=== PATIENT | male | born 1965 | race Caucasian/White ===

== ENCOUNTER 2020-12-07 11:23 | Emergency (ER) | payer OTHER ==
--- NOTE | 2020-12-07 13:03 | EDM.PDOC ---
ED HPI GENERAL MEDICAL PROBLEM - General Chief Complaint: Laceration Stated Complaint: CUT LEFT PALM Time Seen by Provider: 12/07/20 12:25 Source of Information: Reports: Patient History Limitations: Reports: No Limitations - History of Present Illness INITIAL COMMENTS - FREE TEXT/NARRATIVE: 55 yo male presents to ER following injury to his right hand palm. he was ripping a wall out with a tuscarora bar and it slipped cutting into his palm. He maintains full movement of his hand and fingers. HE does need an updated tetanus. generally healthy - Related Data Allergies Allergy/AdvReac Type Severity Reaction Status Date / Time aspirin Allergy Acid Reflux Verified 12/07/20 13:20 ibuprofen Allergy Acid Reflux Verified 12/07/20 13:20 Home Meds: Home Meds . [Unable to Verify Home Med List] 12/07/20 [History] ED ROS GENERAL - Review of Systems Review Of Systems: See Below Respiratory: Denies: Shortness of Breath, Wheezing Cardiovascular: Denies: Chest Pain Skin: Reports: Wound ED EXAM, SKIN/RASH Exam: See Below Exam Limited By: No Limitations General Appearance: Alert, WD/WN, No Apparent Distress Respiratory/Chest: No Respiratory Distress Skin: Warm, Dry, Intact, Wound/Incision Location, Skin: Upper Extremity, Right Characteristics: Other (laceration palm right hand 2.5 cm, bleeding controled) ED SKIN PROCEDURES - Laceration/Wound Repair Right Anterior Hand Appearance: Superficial, Subcutaneous Distal NVT: Neuro & Vascular Intact Anesthetic Type: Local Local Anesthesia - Lidocaine (Xylocaine): 1% with EPI Local Anesthetic Volume: 5cc Skin Prep: Chlorhexidine (Hibiciens), Saline, Sterile Drape Saline Irrigation (cc's): 100 Exploration/Debridement/Repair: Wound Explored, In a Bloodless Field, Explored to Base Closed with: Sutures Lac/Wound length In cm: 2 Suture Size: 4-0 # of Sutures: 5 Suture Type: Nylon, Interrupted, Simple Sterile Dressing Applied: Nurse Tetanus Status Addressed: Yes Complications: No Course - Vital Signs Last Recorded V/S: Last Vital Signs Temp 36.2 C 12/07/20 13:21 Pulse 80 12/07/20 13:21 Resp 18 12/07/20 13:21 BP 161/86 H 12/07/20 13:21 Pulse Ox 96 12/07/20 13:21 - Orders/Labs/Meds Orders: Active Orders 24 hr Category Date Time Status Vaccines to be Administered [RC] PER UNIT ROUTINE Care 12/07/20 13:05 Active Meds: Medications Discontinued Medications Generic Name Dose Route Start Last Admin Trade Name Waqar PRN Reason Stop Dose Admin Bacitracin 1 dose 12/07/20 13:06 12/07/20 13:23 Bacitracin Oint 1 Gm U/D Packet TOP 12/07/20 13:07 1 dose ONETIME ONE Administration Diphtheria/Tetanus/Acell Pertussis 0.5 ml 12/07/20 13:05 12/07/20 13:23 Diphtheria,Pertussis(Acell),Tetanus Vaccine 0.5 Ml Syringe IM 12/07/20 13:06 0.5 ml .ONCE ONE Administration Lidocaine/Epinephrine 5 ml 12/07/20 13:06 12/07/20 13:23 Lidocaine 1% With Epinephrine 1:100,000 50 Ml Mdv INFILT 12/07/20 13:07 5 ml ONETIME ONE Administration Departure - Departure Time of Disposition: 13:51 Disposition: Home, Self-Care 01 Condition: Good Clinical Impression: Laceration of hand Qualifiers: Encounter type: initial encounter Foreign body presence: without foreign body Laterality: right Qualified Code(s): S61.411A - Laceration without foreign body of right hand, initial encounter - Discharge Information *PRESCRIPTION DRUG MONITORING PROGRAM REVIEWED*: Not Applicable *COPY OF PRESCRIPTION DRUG MONITORING REPORT IN PATIENT JOANIE: Not Applicable Instructions: Sutures, Lenorah, or Adhesive Wound Closure, [id number] Referrals: PCP,None [Primary Care Provider] - Forms: ED Department Discharge Additional Instructions: sutures out in 8-10 days keep dry today, thereafter wash with arm soapy water and pat dry keep clean observe for signs of infection: fire engine red, increase in pain, purulent drainage Sepsis Event Note (ED) - Focused Exam Vital Signs: Vital Signs Temp Pulse Resp BP Pulse Ox 12/07/20 13:21 36.2 C 80 18 161/86 H 96 12/07/20 13:19 36.2 C 80 18 161/86 H 96 12/07/20 12:24 36.2 C 80 18 161/86 H 96 - My Orders Last 24 Hours: My Active Orders 12/07/20 13:05 Vaccines to be Administered [RC] PER UNIT ROUTINE - Assessment/Plan Last 24 Hours: My Active Orders 12/07/20 13:05 Vaccines to be Administered [RC] PER UNIT ROUTINE
[2020-12-07] MEDS ORDERED: Diphtheria,Pertussis(Acell),Tetanus Vaccine 0.5 ML Syringe IM ONE (13:05)
[2020-12-07] MEDS ORDERED: Bacitracin Oint 1 GM U/D Packet TOP ONE (13:06)
[2020-12-07] MEDS ORDERED: Lidocaine 1% with EPINEPHrine 1:100,000 50 ML MDV INFILT ONE (13:06)
== END 2020-12-07 14:05 | disposition home or self-care (01) ==
LOC: JP.ED 11:23
DX: S61.411A Laceration without foreign body of right hand, initial encounter (principal); Z23 Encounter for immunization; Z88.6 Allergy status to analgesic agent; W26.8XXA Contact with other sharp object(s), not elsewhere classified, initial encounter
CPT/HCPCS: 12001; 90471; 90715; 99282-25

== ENCOUNTER 2021-02-19 02:43 | Emergency (ER) | payer OTHER ==
--- NOTE | 2021-02-19 04:01 | EDM.PDOC ---
ED HPI GENERAL MEDICAL PROBLEM - General Chief Complaint: Abdominal Pain Stated Complaint: RIGHT SIDE ABD PAIN Time Seen by Provider: 02/19/21 03:20 Source of Information: Reports: Patient, Family History Limitations: Reports: No Limitations - History of Present Illness INITIAL COMMENTS - FREE TEXT/NARRATIVE: 55-year-old type II diabetic developed upper abdominal pain at 6 PM last evening after eating. Most of the pain is localized in the right upper quadrant with some slight radiation to his back. He had diarrhea 2 days ago, no bowel movement since. He has a history of colitis but that presentation was in his left lower quadrant, he has no history of abdominal surgeries. It seemed to improve so he went to bed but the pain woke him up and it was intense enough for him to come in to be checked. Denies fevers or chills, his pain right now is a "2/10". Denies chest pain or shortness of breath. He just had a physical within the last 2 months, his hemoglobin A1c is improved and he was otherwise healthy and reassuring. He feels better sitting up. Onset: Sudden (Fairly sudden onset around 9 hours ago) Duration: Hour(s): (9 hours) Location: Reports: Abdomen (Right upper quadrant) Quality: Reports: Pressure, Stabbing Associated Symptoms: Reports: No Other Symptoms Right Upper Abdomen Pain Score (Numeric/FACES): 4 - Related Data Allergies Allergy/AdvReac Type Severity Reaction Status Date / Time aspirin Allergy Acid Reflux Verified 02/19/21 02:48 ibuprofen Allergy Acid Reflux Verified 02/19/21 02:48 Home Meds: Home Meds Dulaglutide [Trulicity] 1.5 mg SQ WEEKLY 02/19/21 [History] Glimepiride 2 tab PO DAILY 02/19/21 [History] Losartan [Cozaar] 1 tab PO DAILY 02/19/21 [History] Scopolamine [Transderm-Scop] 1 patch TRDERM ASDIRECTED 02/19/21 [History] atorvaSTATin [Lipitor] 1 tab PO DAILY 02/19/21 [History] hydroCHLOROthiazide [Hydrochlorothiazide] 1 tab PO DAILY 02/19/21 [History] Past Medical History HEENT History: Reports: Impaired Vision Cardiovascular History: Reports: High Cholesterol, Hypertension Gastrointestinal History: Reports: Other (See Below) Other Gastrointestinal History: history of ischemic bowel Endocrine/Metabolic History: Reports: Diabetes, Type II Dermatologic History: Reports: Eczema - Infectious Disease History Infectious Disease History: Reports: Chicken Pox, Novel Coronavirus Social & Family History - Tobacco Use Tobacco Use Status *Q: Former Tobacco User Used Tobacco, but Quit: Yes Month/Year Tobacco Last Used: 04/1989 - Caffeine Use Caffeine Use: Reports: Coffee, Energy Drinks - Recreational Drug Use Recreational Drug Use: No ED ROS GENERAL - Review of Systems Review Of Systems: See Below Constitutional: Denies: Fever, Chills, Malaise HEENT: Reports: No Symptoms Respiratory: Reports: No Symptoms Cardiovascular: Reports: No Symptoms GI/Abdominal: Reports: Abdominal Pain : Reports: No Symptoms Musculoskeletal: Reports: No Symptoms Skin: Reports: No Symptoms Neurological: Reports: No Symptoms. Denies: Headache Psychiatric: Reports: No Symptoms ED EXAM, GI/ABD - Physical Exam Exam: See Below Exam Limited By: No Limitations General Appearance: Alert, No Apparent Distress (Looks uncomfortable but not distressed) Eyes: Bilateral: Normal Appearance (No obvious jaundice) Head: Atraumatic Respiratory/Chest: No Respiratory Distress, Lungs Clear Cardiovascular: Regular Rate, Rhythm. No: Tachycardia, Extra Beats GI/Abdominal Exam: Soft, Tender (Minimal palpation tenderness in the right upper quadrant, no guarding or rebound, no discrete positive Rodriguez sign) Extremities: Normal Inspection, No Pedal Edema Neurological: Alert, Oriented Psychiatric: Normal Affect, Normal Mood Skin Exam: Warm, Dry Course - Vital Signs Last Recorded V/S: Last Vital Signs Temp 96.3 F L 02/19/21 02:58 Pulse 74 02/19/21 05:31 Resp 16 02/19/21 05:31 BP 135/92 H 02/19/21 05:31 Pulse Ox 97 02/19/21 05:31 - Orders/Labs/Meds Orders: Active Orders 24 hr Category Date Time Status Abdomen Ltd [US] Stat Exams 02/19/21 05:00 Taken Labs: Laboratory Tests 02/19/21 02/19/21 Range/Units 03:40 03:40 WBC 4.8 (4.5-11.0) K/uL RBC 4.74 (4.30-5.90) M/uL Hgb 14.6 (12.0-15.0) g/dL Hct 41.0 (40.0-54.0) % MCV 87 (80-98) fL MCH 31 (27-31) pg MCHC 36 (32-36) % Plt Count 225 (150-400) K/uL Neut % (Auto) 58.8 (36-66) % Lymph % (Auto) 29.0 (24-44) % Barton % (Auto) 9.5 H (2-6) % Eos % (Auto) 2.3 (2-4) % Baso % (Auto) 0.4 (0-1) % Sodium 146 (140-148) mmol/L Potassium 3.6 (3.6-5.2) mmol/L Chloride 105 (100-108) mmol/L Carbon Dioxide 30 (21-32) mmol/L Anion Gap 11.3 (5.0-14.0) mmol/L BUN 19 H (7-18) mg/dL Creatinine 0.9 (0.8-1.3) mg/dL Est Cr Clr Drug Dosing 104.81 mL/min Estimated GFR (MDRD) > 60 (>60) Glucose 102 (74-106) mg/dL Calcium 8.8 (8.5-10.1) mg/dL Total Bilirubin 0.7 (0.2-1.0) mg/dL AST 18 (15-37) U/L ALT 48 (12-78) U/L Alkaline Phosphatase 51 (46-116) U/L Troponin I < 0.017 (0.000-0.056) ng/mL Total Protein 6.8 (6.4-8.2) g/dL Albumin 3.6 (3.4-5.0) g/dL Globulin 3.2 (2.3-3.5) g/dL Albumin/Globulin Ratio 1.1 L (1.2-2.2) Lipase 213 (73-393) U/L - Re-Assessments/Exams Free Text/Narrative Re-Assessment/Exam: 02/19/21 04:00 A [id number] ultrasound was done which showed a noninflamed gallbladder by my interpretation, there was possibly a slight abnormality near the neck of the bladder that appeared to be nonobstructing. CBC, CMP, lipase and troponin were obtained. Patient declined anything for pain at this time. 02/19/21 05:14 Labs were all reassuring, patient's pain was almost gone when sitting up but increased with laying down. Called ultrasound [employer] to obtain a right upper quadrant ultrasound to be done now or in the a.m. in a couple hours, she elected to come in and get it done now and we are waiting for results. 02/19/21 05:24 Formal ultrasound was obtained and showed no definite reason for abdominal pain. There was no hydronephrosis of the right kidney, gallbladder appeared normal other than a fold in the mucosa near the neck. Patient is can increase diet as tolerated, consider some stool softener today, and return tomorrow night if pain has not resolved. A CT scan with IV contrast will be obtained at that time. He can return sooner if worsening. Departure - Departure Time of Disposition: 05:31 Disposition: Home, Self-Care 01 Clinical Impression: Abdominal pain Qualifiers: Abdominal location: right upper quadrant Qualified Code(s): R10.11 - Right upper quadrant pain - Discharge Information Instructions: Abdominal Pain, Adult, [id number] Referrals: PCP,None [Primary Care Provider] - Forms: ED Department Discharge Care Plan Goals: Advance diet as tolerated, increase activity as tolerated, and consider returning tomorrow evening if pain is persistent or you develop other symptoms such as fever or urinary symptoms. Consider a stool softener for the next day or 2. You can return anytime if significant concerns or marked increased pain. Sepsis Event Note (ED) - Evaluation Sepsis Screening Result: No Definite Risk - Focused Exam Vital Signs: Vital Signs Temp Pulse Resp BP Pulse Ox 02/19/21 05:31 74 16 135/92 H 97 02/19/21 04:27 72 16 147/96 H 97 02/19/21 03:55 73 16 145/94 H 97 02/19/21 03:25 75 16 141/99 H 97 02/19/21 02:58 96.3 F L 79 16 156/103 H 98 - My Orders Last 24 Hours: My Active Orders 02/19/21 05:00 Abdomen Ltd [US] Stat - Assessment/Plan Last 24 Hours: My Active Orders 02/19/21 05:00 Abdomen Ltd [US] Stat
--- NOTE | 2021-02-19 09:05 | US ---
Abdomen Ltd CLINICAL HISTORY: Right upper quadrant pain COMPARISON: None. TECHNIQUE: Real-time images were obtained through the right upper quadrant. FINDINGS: The liver is free of mass or biliary dilatation. There is some increased hepatic parenchymal echotexture.. The gallbladder has a normal appearance. The common bile duct measures 3 mm. The pancreas is moderately obscured due to bowel gas. The right kidney measures 11.5 x 5.0 x 5.4 cm. The IVC is normal. IMPRESSION: Increased hepatic echogenicity suggests fatty infiltration Pancreas is moderately obscured Otherwise essentially normal right upper quadrant ultrasound
== END 2021-02-19 05:31 | disposition home or self-care (01) ==
LOC: JP.ED 02:43
DX: R10.11 Right upper quadrant pain (principal); E78.00 Pure hypercholesterolemia, unspecified; I10 Essential (primary) hypertension; E11.9 Type 2 diabetes mellitus without complications; Z88.8 Allergy status to other drugs, medicaments and biological substances; Z87.891 Personal history of nicotine dependence; Z79.899 Other long term (current) drug therapy
CPT/HCPCS: 36415; 76705; 76705-26; 80053; 83690; 84484; 85025; 99284-25